=== PATIENT | male | born 1980 | race Hispanic/Latino ===

== ENCOUNTER 2018-04-12 21:24 | Emergency (ER) | payer SELFPAY ==
[~2018-04-12] VITALS: Ht 157.5 cm; Wt 86.2 kg
--- NOTE | 2018-04-12 23:13 | Diagnostic Imaging Report ---
EXAMINATION: CHEST 2 VIEWS INDICATION: Chest pain. COMPARISON: None FINDINGS: PA and lateral views TUBES and LINES: None. LUNGS: Lungs are well inflated. Lungs are clear. There is no evidence of pneumonia or pulmonary edema. PLEURA: No pleural effusion or pneumothorax. HEART AND MEDIASTINUM: The cardiomediastinal silhouette is unremarkable. BONES AND SOFT TISSUES: No acute osseous lesion. Soft tissues are unremarkable. UPPER ABDOMEN: No free air under the diaphragm. IMPRESSION: No acute thoracic abnormality. Signed by: DR. Xavier Zeng MD on 04/12/2018 11:10 PM
[2018-04-13] MEDS ORDERED: KETOROLAC TROMETHAMINE 30 MG/ML VIAL IV STA (00:42)
== END 2018-04-13 03:07 | disposition home or self-care (01) ==
LOC: ER 21:24
DX: R09.1 Pleurisy (principal)
CPT/HCPCS: 36415; 71046; 85379; 93005; 99284; J1885